=== PATIENT | male | born 1940 | race Caucasian/White ===

== ENCOUNTER → 2017-06-14 | Outpatient (CLI) | payer MEDICARE ==
[2017-06-14 16:36] LABS: EOS # 0.3 (0.04-0.40); HEMATOCRIT 45.3 % (42.0-52.0); HEMOGLOBIN 16.2 g/dL (13.5-18.0); LYMPH# 1.7 (1.50-4.00); MEAN CELL VOLUME 89 fl (78-100); MEAN CORPUSCULAR HEMOGLOBIN 32 pg (27-31); MEAN CORPUSCULAR HGB CONC 36 g/dL (33-37); MEAN PLATELET VOLUME 9.1 fl (7.4-10.4); MONO # 0.4 (0.20-0.80); NEU # 2.8 (1.40-6.50); PLATELET COUNT 153 K/mm3 (130-400); RED BLOOD COUNT 5.12 M/mm3 (4.20-5.60); RED CELL DISTRIBUTION WIDTH 12.6 % (11.5-14.5); WHITE BLOOD COUNT 5.2 K/mm3 (4.8-10.8)
[2017-06-14 16:39] LABS: ALBUMIN 4.1 g/dL (3.5-5.0); BUN/CREATININE RATIO 14.2 (6.0-26.0); CALCIUM 9.1 mg/dL (8.4-10.2); POTASSIUM 4.1 mmol/L (3.6-5.0); TOTAL BILIRUBIN 0.6 mg/dL (0.2-1.3); TOTAL PROTEIN 7.3 g/dL (6.3-8.2)
== END ==
LOC: LAB 16:07
PROVIDERS: Nurse Practitioner Family
DX: E78.2 Mixed hyperlipidemia (principal); K21.9 Gastro-esophageal reflux disease without esophagitis; F51.01 Primary insomnia

== ENCOUNTER → 2019-03-15 | Outpatient (CLI) | payer MEDICARE | LOC: CARDLAB 07:44 → CARDREHAB 09:34 → CARDLAB 14:30 | DX: R07.9 Chest pain, unspecified (principal) | CPT/HCPCS: A9500 ==

== ENCOUNTER → 2019-04-19 | Outpatient (CLI) | payer MEDICARE ==
[~2019-04-19] VITALS: Ht 180.3 cm; Wt 92.7 kg
[~2019-04-19] MED LIST: BACTRIM DS 8001 TAB PO; FINASTERIDE5 M1 PO; FLUOXETINE HCL20 MG PO; SIMVASTATIN20 M1 PO; ZANTAC150 M1 PO; ZOLPIDEM TART10 MG PO
[2019-04-19 12:50] VITALS: BP 137/83
== END ==
LOC: AMSURD 12:06
DX: I48.91 Unspecified atrial fibrillation (principal)

== ENCOUNTER → 2021-02-12 | Outpatient (CLI) | payer MEDICARE ==
[2021-02-12 13:56] LABS: BASO # 0.03 (0.02-0.10); EOS # 0.38 (0.04-0.40); EOS % 5.9 % (0.0-4.0); HEMOGLOBIN 16.6 g/dL (13.5-18.0); LYMPH# 1.94 (1.50-4.00); MEAN CELL VOLUME 87 fl (78-100); MEAN CORPUSCULAR HEMOGLOBIN 31 pg (27-31); MEAN CORPUSCULAR HGB CONC 35 g/dL (33-37); MEAN PLATELET VOLUME 9.1 fl (7.4-10.4); MONO # 0.48 (0.20-0.80); NEU # 3.58 (1.40-6.50); PLATELET COUNT 139 K/mm3 (130-400); RED BLOOD COUNT 5.39 M/mm3 (4.20-5.60); WHITE BLOOD COUNT 6.4 K/mm3 (4.8-10.8)
[2021-02-12 14:18] LABS: POTASSIUM 4.5 mmol/L (3.5-5.1)
[2021-02-12 14:19] LABS: ALBUMIN 4.1 g/dL (3.4-4.8)
[2021-02-12 14:20] LABS: CALCIUM 9.3 mg/dL (8.3-10.5)
[2021-02-12 14:21] LABS: TOTAL PROTEIN 7.3 g/dL (6.2-8.1)
== END ==
LOC: LAB 13:45
PROVIDERS: Family Medicine
DX: Z00.00 Encounter for general adult medical examination without abnormal findings (principal); R53.83 Other fatigue; E78.5 Hyperlipidemia, unspecified

== ENCOUNTER → 2022-01-12 | Outpatient (CLI) | payer MEDICARE ==
[2022-01-12 11:26] LABS: BASO # 0.03 K/mm3 (0.02-0.10); EOS # 0.33 K/mm3 (0.04-0.40); EOS % 5.5 % (0.0-4.0); HEMATOCRIT 47.6 % (42.0-52.0); HEMOGLOBIN 16.9 g/dL (13.5-18.0); LYMPH# 1.74 K/mm3 (1.50-4.00); MEAN CELL VOLUME 89 fl (78-100); MEAN CORPUSCULAR HEMOGLOBIN 31 pg (27-31); MEAN CORPUSCULAR HGB CONC 36 g/dL (33-37); MEAN PLATELET VOLUME 9.8 fl (7.4-10.4); MONO # 0.45 K/mm3 (0.20-0.80); NEU # 3.41 K/mm3 (1.40-6.50); PLATELET COUNT 125 K/mm3 (130-400); RED BLOOD COUNT 5.38 M/mm3 (4.20-5.60); RED CELL DISTRIBUTION WIDTH 12.6 % (11.5-14.5)
[2022-01-12 11:32] LABS: POTASSIUM 4.7 mmol/L (3.5-5.1)
[2022-01-12 11:33] LABS: ALBUMIN 4.3 g/dL (3.4-4.8)
[2022-01-12 11:34] LABS: CALCIUM 9.3 mg/dL (8.3-10.5)
[2022-01-12 11:35] LABS: TOTAL PROTEIN 8.2 g/dL (6.2-8.1)
[2022-01-12 11:37] LABS: TOTAL BILIRUBIN 1.1 mg/dL (0.2-1.2)
== END ==
LOC: RAD 10:37 → LAB 10:37
PROVIDERS: Family Medicine
DX: Z00.00 Encounter for general adult medical examination without abnormal findings (principal); K44.9 Diaphragmatic hernia without obstruction or gangrene; K21.9 Gastro-esophageal reflux disease without esophagitis; N40.0 Benign prostatic hyperplasia without lower urinary tract symptoms; J30.9 Allergic rhinitis, unspecified; E78.2 Mixed hyperlipidemia; E66.9 Obesity, unspecified; L71.9 Rosacea, unspecified; F43.21 Adjustment disorder with depressed mood; Z86.010 Personal history of colon polyps